=== PATIENT | female | born 1965 | race Caucasian/White ===

== ENCOUNTER 2019-08-21 18:46 | Emergency (ER) | payer MEDICAID ==
[~2019-08-21] VITALS: Ht 152.4 cm; Wt 90.5 kg
[2019-08-21] MEDS ORDERED: KETOROLAC TROMETHAMINE 30 MG/ML VIAL IM ONE (20:15)
[2019-08-21] MEDS ORDERED: LIDOCAINE 5% TRANSDERMAL PATCH TD ONE (20:15)
[2019-08-21] MEDS ORDERED: OxyCODONE HCL 5 MG IR TABLET PO ONE (20:15)
[2019-08-21] MEDS ORDERED: ACETAMINOPHEN 500 MG TABLET PO ONE (20:15)
[2019-08-21 21:04] VITALS: BP 128/68
== END 2019-08-21 21:09 | disposition home or self-care (01) ==
LOC: EMS 18:48
DX: S29.012A Strain of muscle and tendon of back wall of thorax, initial encounter (principal); X58.XXXA Exposure to other specified factors, initial encounter; Y93.89 Activity, other specified; Y92.89 Other specified places as the place of occurrence of the external cause; Y99.8 Other external cause status
CPT/HCPCS: 96372; 99284; J1885